=== PATIENT | male | born 1945 | race Caucasian/White ===

== ENCOUNTER → 2021-07-13 14:50 | Outpatient (CLI) | payer MEDICARE, SELFPAY ==
--- NOTE | ~2021-07-13 | XR_ITS ---
EXAMINATION: XR lumbar spine 2-3V DATE: 07/13/2021 15:29 INDICATION: Low back pain TECHNIQUE: Anteroposterior and lateral views of the lumbar spine, and cone-down lateral view of the l umbosacral junction were obtained. COMPARISON: None. FINDINGS: 11 degree dextroscoliosis between L1 and L4 and 90 degree dextrocurvature between L4 and L5. 3 mm ret rolisthesis L3 on L4 and L4 on L5. Vertebral body heights are normal. Severe left-sided disc height l oss at L3-L4 and severe right-sided disc height loss at L4-L5. Moderate to severe disc height loss at L5-S1. Moderate disc height loss at 10-11 and mild disc height loss at L2-L3. Moderate lower lumbar facet osteoarthritis. Mild bilateral sacroiliac osteoarthritis. There are couple 2-3 mm calcification s potentially renal stones project over the left kidney. IMPRESSION: 1. Severe lumbar spondylosis. 2. A couple possible 2-3 mm left renal stones. Reviewed, dictated and finalized at location A. 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
== END ==
PROVIDERS: PCP Family Medicine; Visit Provider Physician Assistant
DX: M47.816 Spondylosis without myelopathy or radiculopathy, lumbar region (principal); M53.3 Sacrococcygeal disorders, not elsewhere classified
CPT/HCPCS: 72100

== ENCOUNTER 2022-02-12 13:56 | Outpatient (CLI) | payer MEDICARE, SELFPAY ==
--- NOTE | ~2022-02-12 | DEXA_ITS ---
Bone Density Report Name: JEANNE CAMPOS Age: 76 Sex: Male Ethnicity: White Date of : 1945 Indication: screening for osteoporosis; cancer; Referring Provider: MAX STEVENS Study: Bone densitometry was performed. Exam Date: February 12, 2022 Accession number: [id number] Bone Density: Region BMD T-score Z-score Classification AP Spine(L1, L2, L3) 1.098 0.3 1.2 Normal Femoral Neck (Left) 0.670 -1.9 -0.6 Osteopenia Total Hip (Left) 0.899 -0.9 -0.1 Normal Femoral Neck (Right) 0.655 -2.0 -0.7 Osteopenia Total Hip (Right) 0.825 -1.4 -0.6 Osteopenia Total Hip Mean 0.862 -1.2 -0.4 Osteopenia World Health Organization criteria for BMD impression classify patients as: Normal (T-score at or above -1.0), Osteopenia (T-score between -1.0 and -2.5), or Osteoporosis (T-score at or below -2.5). 10-year Fracture Risk(1): Major Osteoporotic Fracture 8.1% Hip Fracture 2.7% Reported Risk Factors: [place] (), Neck BMD=0.655, BMI=29.6 (1) FRAX(R) Version 3.08. Fracture probability calculated for an untreated patient. Fracture probability may be lower if the patient has received treatment. Clinical Information Provided by Patient: Has used the following medications: Vitamin D, Calcium Has the following medical conditions: Cancer Patient maximum height was 72 Drinks caffeinated beverages Impression: The patient has low bone mass, based on the Right Femoral Neck T-score. The patient has an estimated ten-year risk of hip fracture of 2.7% and an estimated ten-year risk of major fracture of 8.1%, based on the WHO FRAX algorithm. Discussion: BONE DENSITY IS LOW AT ONE OR MORE SKELETAL SITES. This patient's lowest T-score is low at one or more skeletal sites. It meets the World Health Organization's (WHO) criteria for ?low bone mass? (T-score between -1.0 and -2.5). The patient's 10-year risk of fracture as calculated by FRAX is less than the threshold where pharmacological therapy is recommended by the National Osteoporosis Foundation (NOF). However, all treatment decisions require clinical judgment and consideration of individual patient factors, including patient preferences, comorbidities, previous drug use, risk factors not captured in the FRAX model (e.g., frailty, falls, vitamin D deficiency, increased bone turnover, interval significant decline in bone density) and possible under or overestimation of fracture risk by FRAX. The patient should follow a healthful lifestyle (good nutrition with adequate calcium and vitamin D, and appropriate weight-bearing exercise). Follow-Up: Consider repeating this study in 2 to 3 years to reassess this patient's status, or sooner if there is some new clinical indication. Reported by: [facility] on 02/12/2022 2:21:00 PM.
== END 2022-02-12 13:57 | disposition home or self-care (01) ==
LOC: ANHIMG 13:57
PROVIDERS: PCP Family Medicine; Visit Provider Family Medicine
DX: M85.859 Other specified disorders of bone density and structure, unspecified thigh (principal); M85.851 Other specified disorders of bone density and structure, right thigh; M85.852 Other specified disorders of bone density and structure, left thigh
CPT/HCPCS: 77080

== ENCOUNTER 2023-12-09 10:16 | Outpatient (CLI) | payer MEDICARE, SELFPAY ==
--- NOTE | ~2023-12-09 | XR_ITS ---
EXAMINATION: XR hip LT 2V w AP pelvis DATE: 12/09/2023 10:30 INDICATION: Left hip pain. TECHNIQUE: An anteroposterior view of the pelvis and 2 views of left hip were obtained. COMPARISON: None. FINDINGS: There is lumbar dextrocurvature and severe spondylosis. No fracture. There is moderate oste oarthritis of the hips. IMPRESSION: 1. Moderate osteoarthritis of the hips. Reviewed, dictated and finalized at location A.
== END 2023-12-09 10:17 ==
PROVIDERS: PCP Family Medicine; Visit Provider Nurse Practitioner Family
DX: M16.0 Bilateral primary osteoarthritis of hip (principal)
CPT/HCPCS: 73502

== ENCOUNTER 2024-12-25 09:21 | Outpatient (CLI) | payer MEDICARE, SELFPAY ==
--- OUTSIDE RECORDS SUMMARY | 2024-10-26 06:30 | XMS_ITS | Continuity of Care Document ---
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 Role Phone Daniel Anna OD Unavailable Unavailable Allergies, Adverse Reactions, Alerts Substance Reaction Status Criticality No Known Allergies Active No Inform ation Medications Medication Instructions Dosage Effective Dates (start - stop) Status Comments PreserVision AREDS-2 250 mg-90 mg-40 mg-1 mg capsule take 1 capsule by oral route 2 times every day 1 capsule - Active atorvastatin 80 mg tablet - Active CoQ-10 100 mg capsule take 1 capsule by oral route every day 1 capsule - Active Vitamin D3 25 mcg (1,000 unit) tablet tab daily orally in summer/ 2 in winter - Active finasteride 5 mg tablet - Active pilocarpine 5 mg tablet - Active alfuzosin ER 10 mg tablet,extended release 24 hr - Active losartan 50 mg tablet - Acti ve omeprazole 20 mg capsule,delayed release - Active triamcinolone acetonide 0.1 % topical cream - Active aspirin 81 mg chewable tablet chew 1 tablet by oral route every day 81 MG - Active ketoconazole 2 % topical cream apply by topical route every day to the affected area(s) 0.00 - Active clindamycin 1 % lotion apply by topical route 2 times every day a thin layer to the affected area(s) 0.00 - Active fish oil ORAL CAPSULE 1 gelcsap orally 2 x daily - Active Calcium 500 + D 500 mg (1,250 mg)-200 unit tablet take 2 tablet by oral route every day 2 tablet - Active multivitamin tablet take 1 by oral route every day 1 - Active Procedures Procedure Date FUNDUS PHOTOGRAPHY EYE EXAM & TREATMENT FUNDUS PHOTOGRAPHY REFRACTION EYE EXAM & TREATMENT FUNDUS PHOTOGRAPHY REFRACTION EYE EXAM & TREATMENT FUNDUS PHOTOGRAPHY EYE EXAM & TREATMENT FUNDUS PHOTOGRAPHY EYE EXAM & TREATMENT REFRACTION FUNDUS PHOTOGRAPHY EYE EXAM & TREATMENT REFRACTION EYE EXAM ESTABLISHED PAT Results Test Name Date and Time Measure Units Reference Range Abnormal Flag Status Commen ts Panel Description: [id number] Final Image Zeiss Result 1 Panel Description: [id number] Final Image Zeiss Result 2 Advance Directives Directive Yes / No Effective Date File Name No Information Encounters Encounter Description Practice Location Reason(s) For Visit Diagnoses Date Provider Providers Copied on Encounter [facility], [address] [place] [address], [id number], tel:[phone] [facility] Pseudo Exam (chief complaint) Drusen (chief complaint) decreased vision (chief complaint) Alternating esotropiaVitreo us degeneration, bilateralPresen ce of intraocular lensDrusen (degenerative) of macula, bilateral [address] [place] [address]. [address] [place] [address], [id number] , . tel: [phone] Referring Provider: Clare Mart MD, [facility] [address] [place] [address], [place], [address]. tel:[phone] [facility], [address] [place] [address], [id number], tel:[phone] [employer] [facility] blurry vision (chief complaint) Drusen (chief complaint) Vitreous degeneration, bilateralDrusen (degenerative) of macula, bilateralAltern ating esotropiaPresen ce of intraocular lensPresbyopia 4 Shoshana Sanchez. [address] [place] [address], [id number] , . [phone] Referring Provider: Clare Mart MD, [address] [place], [address]. tel:[phone] [facility], [address] [place] [address], [id number], tel:[phone] [facility] blurry vision (chief complaint) Vitreous degeneration, bilateralDrusen (degenerative) of macula, bilateralAltern ating esotropiaPresen ce of intraocular lensPresbyopia 3 Shoshana Sanchez. [address] [place] [address], [id number] , [place]. tel:[phone] Referring Provider: Clare Mart MD, [address] [place], [address]. tel:[phone] [facility], [address] [place] [address], [id number], tel:[phone] blurry vision (chief complaint) Presence of intraocular lensAlternating esotropiaDrusen (degenerative) of macula, bilateralVitreo us degeneration, bilateral 2 Shoshana Sanchez. [address] [place] [address], [id number] , [place]. tel:[phone] Referring Provider: Daniel Anna, [address] [place] [address], [id number]. tel:[phone] [facility], [address] [place] [address], [id number], tel:[phone] [facility] H/O Drusen (chief complaint) blurry vision (chief complaint) Drusen (degenerative) of macula, bilateralPresen ce of intraocular lensVitreous degeneration, bilateralPaving stone degeneration of retina, bilateralAltern ating esotropiaPresby opia 1 Sorce Daniel. [address] [place], [place], [id number] , [place]. tel: [phone] Referring Provider: Clare Mart MD, [address] [place], [address]. tel:[phone] [facility], [address] [place] [address], [id number], [phone] [place] [address] [facility] No Information 0- 1 Sorce Daniel. [address] [place] [address], [id number] , [place]. tel: [phone] Referring Provider: Clare Mart MD, [address] [place], [address]. tel:[phone] [facility], [address] [place] [address], [id number], tel:[phone] [address] [place] [address] [facility] blurry vision (chief complaint) existing condition drusen (chief complaint) redness (chief complaint) Episcleritis periodica fugax, right eyeDrusen (degenerative) of macula, bilateralVitreo us degeneration, bilateralAltern ating esotropiaPresen ce of intraocular lensPresbyopia 0 Sorce Daniel. [address] [place] [address], [id number] , . tel: [phone] [facility], [address] [place] [address], [id number], [phone] [place] [address] [facility] No Information 0 Sorce Daniel. [address] [place], [place], [id number] , [place]. tel: [phone] Referring Provider: Clare Mart MD, [address] [place], [address]. tel:[phone] [facility], [address] [place] [address], [id number], [place] tel:[phone] [facility] Pain and redness (chief complaint) Alternating esotropiaDrusen (degenerative) of macula, bilateralPresen ce of intraocular lensVitreous degeneration, bilateralEpiscl eritis periodica fugax, right eye September- 0 Shoshana Sanchez. [address] [place] [address], [id number] , [place]. tel: [phone] [facility], [address] [place] [address], [id number], [place] tel:[phone] [facility] PresbyopiaAlter nating esotropiaPresen ce of intraocular lensDrusen (degenerative) of macula, bilateralVitreo us degeneration, bilateral Dec- 9 Sorenriqueta Youngerig. [address] [place] [address], [id number] , [place]. tel: [phone] [facility], [address] [place] [address], [id number], [place] tel:[phone] [facility] Drusen (degenerative) of macula, bilateralPresen ce of intraocular lensOther secondary cataract, bilateral Oct- 9 Galrenea Burke. [address] [place] [address], [id number] , [place]. tel: [phone] [facility], [address] [place] [address], [id number], tel:[phone] [facility] PresbyopiaDruse n (degenerative) of macula, bilateralVitreo us degeneration, bilateralPresen ce of intraocular lens Markus- 9 Sorenriqueta Daniel. [address] [place] [address], [id number] , [place]. tel: [phone] [facility], [address] [place] [address], [id number], tel:[phone] [facility] Myopia, right eyeEncounter for other specified surgical aftercare 8 Sorenriqueta Youngerig. [address] [place] [address], [id number] , [place]. tel: [phone] [facility], [address] [place] [address], [id number], [phone] [facility] Encounter for other specified surgical aftercareEncoun ter for other specified surgical aftercare Oct-1 0-201 8 Shoshana Sanchez. [address] [place] [address], [id number] , [place]. tel: [phone] [facility], [address] [place] [address], [id number], [place] [phone] Encounter for other specified surgical aftercareEncoun ter for other specified surgical aftercare Oct-0 3- 8 Shoshana Sanchez. [address] [place] [address], [id number] , [place]. tel: [phone] [facility], [address] [place] [address], [id number], [place] tel:[phone] [facility] Encounter for other specified surgical aftercareAge-re lated nuclear cataract, right eye Sep-1 9 8 Shoshana Sanchez. [address] [place] [address], [id number] , [place]. tel: [phone] [facility], [address] [place] [address], [id number], [phone] Encounter for other specified surgical aftercare Sep-1 2- 8 Shoshana Sanchez. [address] [place] [address], [id number] , [place]. tel: [phone] [facility], [address] [place] [address], [id number], [place] [phone] Age-related nuclear cataract, bilateralDrusen (degenerative) of macula, bilateralVitreo us degeneration, bilateral Aug-0 5 8 Amiebernadette Turk. [address] [place] [address], [id number] , [place]. tel: [phone] [facility], [address] [place] [address], [id number], tel:[phone] [facility] Vitreous degeneration, bilateralAge-re lated nuclear cataract, bilateralDrusen (degenerative) of macula, bilateral 7 Sorenriqueta Youngerig. [address] [place] [address], [id number] , . tel: [phone] [facility], [address] [place] [address], [place], [place], [id number], [phone] [facility] Age-related nuclear cataract, bilateralUnspec ified chorioretinal scars, left eyePresbyopiaDr usen (degenerative) of macula, bilateral 6 Sorenriqueta Sanchez. [address] [place], [place], [id number] , . tel:[phone] Family History Family Member Type Diagnosis Age At Onset Problem (finding) Cataract sister he thinks Problem (finding) Fhx of degene rative disorder of macula Brother Problem Parkinson's disease Payers Payer name Insurance type Covered green party ID Bong jensen(s) [employer] 16 [id number] Social History Type Description Quantity Date Captured Comments Alcohol Use Details No Caffeine Use Details Unknown Tobacco Use Status No Information Smoking Status Former smoker Non-Smoking Tobacco Use Details : No Details Available : No Details Available Sex Male Chief Complaint And Reason For Visit From encounter dated '10/26/2024 11:30'. Pseudo Exam (chief complaint). Description: The 78 year old patient presents for evaluation of Pseudo Exam in the right eye and left eye. Drusen (chief complaint). Description: The patient is present for evaluation of Drusen in the righteye and left eye. The condition is moderate. The symptom is constant. Uses AREDS2 as needed but no complaints decreased vision (chief complaint). Description: The patient is present for evaluation of decreasedvision in the right eye and left eye. It occurs when tired. The symptom is constant. The condition is limiting patient's ability to read. more so when the light is deem. Reason For Referral Reason For Referral No Information Plan Of Treatment Date Type Action Status Goal Tobacco cessation counseling completed Appointment Abdaiziz Campos BOOKED Future Order: Radiology Order Op [facility] GAL ([id number]), Sent on: Sent History Of Present Illness Encounter Date Complaint History Of Prese nt Illness Pseudo Exam The 78 year old patient presents for evaluation of Pseudo Exam in the right eye and left eye. Drusen The patient is p resent for evaluation of Drusen in the right eye and left eye. The condition is moderate. The symptom is constant. Uses AREDS2 as needed but no complaints decreased vision The patient is present for evaluation of decreased vision in the right eye and left eye. It occurs when tired. The symptom is constant. The condition is limiting patient's ability to read. more so when the light is deem. Drusen The patient is p resent for evaluation of Drusen in the right eye and left eye. The symptom is constant. The condition is mild. Taking AREDS2 1 PO 2 x d blurry vision The 77 year old male presents for evaluation of blurry vision in the right eye and left eye. It affects both near and far vision. The symptom is constant. The condition is mild. The condition is described as blurring. In addition, the condition is associated with daily activity and chores. blurry vision The 76 year old male presents for evaluation of blurry vision in the right eye and left eye. It affects both near and far vision. The symptom is constant. VA stable, no changes. States bright daylight and nighttime driving can cause VA to blur a little. Denies pain, FOL or floaters. blurry vision The 75 year old male presents for evaluation of blurry vision in the right eye and left eye. Monitored for many years. Pt takes AREDS2 Vitamin, compliantly. Slightly decreased acuity left eye upon night driving. H/O Drusen The 74 year old male presents for evaluation of H/O Drusen in the right eye and left eye. Va unaffected per pt. Pt taking AREDS2 BID. blurry vision The patient is p resent for evaluation of blurry vision in the right eye and left eye. Blurred many years. Unchanged per pt. Blur is at dist. & close w/o Rx. blurry vision The 73 year old male presents for evaluation of blurry vision in the right eye and left eye. Without glasses. Distance and near. Years. Mild. Glasses help. existing condition drusen The pa kristy is present for evaluation of existing condition drusen in the right eye and left eye. mild, yrs, areds2 compliant, +FOHX of armd redness OD resolved w ey edrops. Pain and redness The 73 year old male presents for evaluation of Pain and redness in the right eye. It started about 2 day(s) ago. The onset was sudden after poking eye with knuckle while wiping away tears from laughing. The condition is described as painful when moving to left. Redness, tenderness, slight light sensitivity. Denies any visual changes Functional Status Date Functional Assessmen t No Information Instructions Date Instruction Additional Infor isiah Impression/Plan Related to Prese nce of intraocular lens Impression/Plan Related to Druse n (degenerative) of macula, bilateral Impression/Plan Related to Vitre ous degeneration, bilateral Impression/Plan Related to Alter nating esotropia Impression/Plan Related to Vitre ous degeneration, bilateral Impression/Plan Related to Druse n (degenerative) of macula, bilateral Impression/Plan Related to Prese nce of intraocular lens Impression/Plan Related to Alter nating esotropia Impression/Plan Related to Presb yopia rtn [address] Anna for Op tos Related to Presbyopia Impression/Plan Related to Vitre ous degeneration, bilateral Impression/Plan Related to Druse n (degenerative) of macula, bilateral Impression/Plan Related to Alter nating esotropia Impression/Plan Related to Prese nce of intraocular lens Impression/Plan Related to Presb yopia Impression/Plan Related to Prese nce of intraocular lens Impression/Plan Related to Vitre ous degeneration, bilateral Impression/Plan Related to Druse n (degenerative) of macula, bilateral Impression/Plan Related to Alter nating esotropia rtn [address] Anna for Op tos Related to Drusen (degenerative) of macula, bilateral Impression/Plan Related to Vitre ous degeneration, bilateral Impression/Plan Related to Druse n (degenerative) of macula, bilateral Impression/Plan Related to Alter nating esotropia Impression/Plan Related to Prese nce of intraocular lens Impression/Plan Related to Presb yopia rtn [address] Anna for Op tos Related to Drusen (degenerative) of macula, bilateral Impression/Plan Related to Episc leritis periodica fugax, right eye Impression/Plan Related to Druse n (degenerative) of macula, bilateral Impression/Plan Related to Vitre ous degeneration, bilateral Impression/Plan Related to Alter nating esotropia Impression/Plan Related to Prese nce of intraocular lens Impression/Plan Related to Presb yopia Impression/Plan Related to Episc leritis periodica fugax, right eye Impression/Plan Related to Alter nating esotropia Impression/Plan Related to Druse n (degenerative) of macula, bilateral Impression/Plan Related to Prese nce of intraocular lens Impression/Plan Related to Vitre ous degeneration, bilateral Assessments Type Assessment Date assessment Alternating esotropia impression 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 J assessment Vitreous degeneration, bilateral impression Vitreous degeneratio n, bilateral: H43.813. Indication: Posterior vitreous detachmentReliability: goodFindings: Posterior vitreous detachment (PVD).Therapeutic implications: observe for signs and symptoms of retinal detachment. assessment Presence of intraocular lens Oct impression Presence of intraocular lens: Z9 6.1. assessment Drusen (degenerative) of macula, bilateral impression Drusen (degenerative ) of macula, bilateral: H35.363. Indication: DrusenReliability: goodFindings: Drusen periph / min centralTherapeutic implications: observe, consider AREDS2 supplements.Continue observation and follow up on a regular basis. Patient Care Teams Name Effective Dates (start - stop) Status Members No Information
--- NOTE | ~2024-12-25 | XR_ITS ---
EXAM/ PROCEDURE: XR hand BI arthritis min 3V - 12/25/2024 9:40 CDT HISTORY: 79 years old Male with M18.9 - Osteoarthritis of first carpometacarpal joint, un... COMPARISON: None available TECHNIQUE: Three view(s) FINDINGS/ IMPRESSION: There are no fractures or dislocations.Joint space narrowing, subchondral sclerosis, subchondral cyst formation and osteophyte formation, compatible with mild osteoarthritis, most pronounced at first carpometacarpal joint. Reviewed, dictated and finalized at location A.
--- OUTSIDE RECORDS SUMMARY | 2024-12-25 09:39 | XMS_ITS | Encounter Summary ---
Author Organization [facility] Address [address] [place] [address] Care Team Providers Care Delivery Table Feeder Name Role Phone Unavailable Primary Care Provider Unavailabl e Encounter Details Date Type Department Care Team (Late st Contact Info) Description 05/22/2020 Lab Requisition [facility] DermPath Lab [address] [place] [address] Martin Locke MD [address] COUNTS INCLUDE [address]S [address] [facility] [address] [place] [address] Social History Tobacco Use Types Packs/Day Years Used Date Smoking Tobacco: Former Cigarettes 0 05/09/1966 - 05/09/1990 Smokeless Tobacco: Never Sex and Gender Information Value Date Recorded Sex Assigned at Not on file Legal Sex Male 1:49 PM CDT Gender Identity Not on file Sexual Orientation Not on file documented as of this encounter Plan of Treatment Not on file documented as of this encounter Procedures Procedure Name Priority Date/Time Associated Diagnosis Comments DERMATOPATHOLOGY Routine 05/21/2020 3:27 AM CASTING MACHINE SERVICE OPERATOR documented in this encounter Results * DERMATOPATHOLOGY (05/21/2020 3:27 AM CASTING MACHINE SERVICE OPERATOR) Case Report Dermatopathology Report Case: [id number] Authorizing Provider: Martin Locke MD Collected: 05/21/2020 03:27 AM Ordering Location: [facility] DermPath Lab Received: 05/22/2020 07:09 AM Pathologist: Arabella Bhatt MD Specimen: Skin, upper mid back 1:32 PM CASTING MACHINE SERVICE OPERATOR DERMATOPATHOLOGY LABORATORY Final Diagnosis Specimen A. SKIN, upper mid back: BASAL CELL CARCINOMA (C44.519) (see microscopic description and comment) 1 1:32 PM [facility] DERMATOPATHOLOGY LABORATORY at 1332 CASTING MACHINE SERVICE OPERATOR Clinical History ISK vs BCCA. Path # [id number]. 1 1:32 PM [facility] DERMATOPATHOLOGY LABORATORY Gross Description Specimen A: Received is one formalin filled container labeled with the patient's name and designated upper mid back. The specimen consists of a shave biopsy measuring [id number]. Jar 0. 1 1:32 PM [facility] DERMATOPATHOLOGY LABORATORY Microscopic Description Specimen A. SKIN, upper mid back: The specimen consists of aggregates of basaloid cells, located within the superficial dermis, with high nuclear to cytoplasmic ratio and peripheral palisading. COMMENT: The small size of the specimen limits subtyping of the lesion. 1 1:32 PM [facility] DERMATOPATHOLOGY LABORATORY Disclaimer An external and internal positive and negative controls are appropriate for the histochemical, immunohistochemical and immunofluorescence stain(s) in this case (if any), except where stated explicitly. The performance characteristics of the stain(s) cited in this report were developed and its performance characteristic determined by the Dermatopathology Laboratory at [facility], directed by Dr. Marilee Billingsley. These tests need not be, and therefore are not, approved by the [place] Food and Drug Administration. The tests are used for clinical purposes. Billing Codes Specimen Charges Stain Charges 39812 1 1 1:32 PM [facility] DERMATOPATHOLOGY LABORATORY Embedded Images 1 1:32 PM [facility] DERMATOPATHOLOGY LABORATORY Pathology/Cytolo gy TISSUE SPECIMEN FROM SKIN / Unknown 05/21/2020 3:27 AM CASTING MACHINE SERVICE OPERATOR 05/22/2020 7:09 AM CASTING MACHINE SERVICE OPERATOR us Martin Locke MD LAB - PATHOLOGY/CYTOLOGY ORDER CARL Final Result DERMATOPATHOLOGY LABORATORY [facility] - Department of Dermatology [address], [address] [phone] documented in this encounter Visit Diagnoses Not on filedocumented in this encounter
--- OUTSIDE RECORDS SUMMARY | 2024-12-25 09:39 | XMS_ITS | Clinical Summary ---
Author Organization [facility] Address [address] [place] [address] Care Team Providers Care Cloak Room Attendant Name Role Phone Unavailable Primary Care Provider Unavailabl e Source Comments [facility],non-owned Affiliates and Associated Physician Practices is amultiple site organization consisting of ambulatory clinics and hospital sitesin [place], [place], [place] and [place]. This disclosure is being madepursuant to the Care Everywhere program and may not contain all information available regarding this patient. Last updated 18.[facility] Allergies No known active allergies Medications * Be aware that medications may not be up to date on this document. Alwaysverify current medications with the patient. Coenzyme Q10 (CO Q 10) 100 MG Take 100 mg by mouth once daily Active [place]-3 Fatty Acids (FISH OIL) 1000 MG capsule Take 2 capsules at bedtime. Active hydrocortisone butyrate (LOCOID) 0.1 % cream Apply to affected area 3 times daily Active Multiple Vitamins-Minerals (MENS MULTIVITAMIN PLUS PO) Take 1 Tab by mouth once daily Active naftifine (NAFTIN) 1 % cream Apply to affected area once daily Active omeprazole (PRILOSEC) 20 MG capsule Take 20 mg by mouth daily before breakfast Active pilocarpine hcl, oral, (SALAGEN) 5 MG tablet Take 5 mg by mouth 3 times daily Active simvastatin (ZOCOR) 10 MG tablet Take 10 mg by mouth at bedtime Active sildenafil (VIAGRA) 100 MG tablet Take 100 mg by mouth once as needed Active Cholecalciferol (VITAMIN D PO) Activ e CALCIUM PO Active naproxen sodium (ALEVE) 220 MG tablet Take 220 mg by mouth as needed Active finasteride (PROSCAR) 5 MG tablet Take 5 mg by mouth once daily Active Multiple Vitamins-Minerals (PRESERVISION AREDS 2 PO) Take 2 Tabs by mouth once daily Active alfuzosin CR 24hr (UROXATRAL) 10 MG tablet Take 10 mg by mouth once daily 8 Active losartan (COZAAR) 50 MG tablet Take 1 tablet by mouth once daily 14 tablet 1 0 Active Active Problems Problem Noted Date Diagnosed Date Dysmetabolic syndrome X 03/05/2016 Esophageal reflux 03/05/2016 Gallbladder polyp 03/05/2016 Hyperlipidemia 03/05/2016 Overview (03/05/2016): Cristela Classification Type Iib Prehypertension 03/05/2016 Vitamin D deficiency 03/05/2016 Resolved Problems Problem Noted Date Diagnosed Date Resolved Date Chest pain 03/05/2016 09/27/2018 Overview (03/30/2016): 03/24 Stress Echo - 9:31 min, negtive for ischemia - normal Lv function Social History Tobacco Use Types Packs/Day Years Used Date Smoking Tobacco: Former Cigarettes 0 05/09/1966 - 05/09/1990 Smokeless Tobacco: Never Sex and Gender Information Value Date Recorded Sex Assigned at Not on file Legal Sex Male 1:49 PM CDT Gender Identity Not on file Sexual Orientation Not on file Last Filed Vital Signs Vital Sign Reading Time Taken Comments Blood Pressure 148/85 04/09/2020 1:31 PM AMMUNITION AND EXPLOSIVES HANDLER Pulse 70 04/09/2020 1:31 PM AMMUNITION AND EXPLOSIVES HANDLER Temperature - - Respiratory Rate - - Oxygen Saturation 97% 04/09/2020 1:31 PM AMMUNITION AND EXPLOSIVES HANDLER Inhaled Oxygen Concentration - - Weight 97.1 kg (214 lb) 04/09/2020 1:31 PM AMMUNITION AND EXPLOSIVES HANDLER Height 182.9 cm (6') 04/09/2020 1:31 PM AMMUNITION AND EXPLOSIVES HANDLER Body Mass Index 29.02 04/09/2020 1:31 PM AMMUNITION AND EXPLOSIVES HANDLER Plan of Treatment Health Maintenance Due Date Last Done Comments HEPATITIS C SCREENING 11/05/1965 DTAP/TDAP/TD VACCINES (1 - Tdap) 11/09/1966 PNEUMOCOCCAL VACCINE 50+ (1 of 1 - PCV) 11/09/1997 ZOSTER VACCINE (1 of 2) 11/09/1997 SCREENING FOR DIABETES 02/04/2020 02/03/2017 Respiratory Syncytial Virus (RSV) Vaccine Pt: or over 60 yrs (1 - 1-dose 75+ series) 11/09/2022 COVID-19 VACCINE (2023-2 5 season) 2024 DEPRESSION SCREENING 05/09/2024 INFLUENZA VACCINE (#1) 2025 02/24/2016 HEPATITIS B VACCINE Aged Out No longe r eligible based on patient's age to complete this topic HIB VACCINE Aged Out No longer eligi ble based on patient's age to complete this topic HPV VACCINE Aged Out No longer eligi ble based on patient's age to complete this topic MENINGOCOCCAL (Group B) VACC INE SHARED DECISION-MAKING Aged Out No longer eligibl e based on patient's age to complete this topic MENINGOCOCCAL GROUPS A/C/Y/W VACCINE Aged Out No longer eligible b ased on patient's age to complete this topic Procedures Procedure Name Priority Date/Time Associated Diagnosis Comments BASIC METABOLIC PANEL (CALCIUM TOTAL) Routine 02/03/2017 3:52 PM CDT Mixed hyperlipidemia Prehypertension Dysmetabolic syndrome X Gastroesophageal reflux disease without esophagitis from Last 3 Months or Most Recently Relevant to Health Maintenance Results * BASIC METABOLIC PANEL (CALCIUM TOTAL) (02/03/2017 3:52 PM CDT) Glucose 91 65 - 99 mg/dL [facility] Comment: Fasting reference interval BUN 14 7 - 25 mg/dL [facility] Creatinine 0.83 0.70 - 1.25 mg/dL [facility] Comment: For patients >49 years of age, the reference limit for Creatinine is approximately 13% higher for people identified as -Greenlandic. eGFR by MDRD 90 > OR = 60 mL/min/1 .73m2 [facility] eGFR by MDRD 104 > OR = 60 mL/min/1 .73m2 [facility] BUN/Creatinine Ratio NOT APPLICABLE 6 - 22 (calc) [facility] Sodium 142 135 - 146 mmol/L [facility] Potassium 3.9 3.5 - 5.3 mmol/L [facility] Chloride 105 98 - 110 mmol/L [facility] CO2 30 20 - 31 mmol/L [facility] Calcium 9.4 8.6 - 10.3 mg/dL [facility] Comment: Test Performed at: [employer] [facility] [address] [place] [address] NICK ROGER DO,MPH Blood BLOOD SPECIMEN / Unknown 02/03/2017 3:52 PM CDT 02/03/2017 3:52 PM CDT us Walker Nur MD LAB - CHEMISTRY ORDERABLES E dited Result - Final [facility] [id number] [place] [address] from Last 3 Months or Most Recently Relevant to Health Maintenance Insurance AETNA AETNA
--- OUTSIDE RECORDS SUMMARY | 2024-12-25 09:39 | XMS_ITS | Clinical Summary ---
Author Organization [facility] Address [address] [place] [address] Care Team Providers Care Crayon Molding Machine Operator Name Role Phone Walker Nur MD Unavailable [phone] Tate Mart MD Primary Care Provider [phone] Allergies Active Allergy Reactions Criticality Noted Date Comments Ciprofloxacin Joint Pain 07/03/2022 Medications omeprazole 20 MG capsule Take 1 capsule (20 mg total) by mouth daily. Active pilocarpine 5 MG tablet Take 1 tablet (5 mg total) by mouth daily. Active finasteride 5 MG tablet Take 1 tablet (5 mg total) by mouth nightly. Active losartan 50 MG tablet Take 1 tablet (50 mg total) by mouth nightly. Active alfuzosin 10 MG 24 hr tablet Take 1 tablet (10 mg total) by mouth nightly. 12/12/2017 Active Coenzyme Q10 (CO Q 10) 100 MG Cap Take 100 mg by mouth daily. Active calcium carbonate (CALCIUM 600) 600 MG tablet Take 1 tablet (600 mg total) by mouth daily. Active fish oil 1000 MG Cap capsule Take 1 capsule (1,000 mg total) by mouth daily. Active Multiple Vitamins-Minera ls (ICAPS AREDS 2 OR) Take 2 tablets by mouth. Active multivitamin tablet Take 1 tablet by mouth daily. Active Ergocalciferol (VITAMIN D OR) Activ e losartan (COZAAR) 50 MG tablet Take 1 tablet (50 mg total) by mouth daily. 01/18/2023 Active cholestyramine (QUESTRAN) 4 G packetIndicatio ns:Bile reflux gastritis Take 1 packet (4 g total) by mouth 2 (two) times daily with meals. Take once or twice a day. 180 packet 3 06/04/2024 Active Active Problems Problem Noted Date Diagnosed Date Periumbilical pain 05/17/2024 Gastroesophageal reflux dise ase, unspecified whether esophagitis present 05/17/2024 Family history of colon cancer in mother 024 History of colon polyps 01/25/2024 Resolved Problems Problem Noted Date Diagnosed Date Resolved Date Screening for colon cancer 05/17/2024 0 05/28/2024 Screening for colon cancer 01/25/2024 0 01/30/2024 Family History Medical History Relation Comments Heart Disease Father Colon Cancer Mother returned at 86 Heart Disease Sister 2 Relation Status Comments Brother Alive Daughter 1 Alive Daughter 2 Alive Father Mother Sister 1 Alive Sister 2 of pericard itis Sister 3 Alive Social History Tobacco Use Types Packs/Day Years Used Date Smoking Tobacco: Former Cigarettes 2 19 1 2 - 1990 Smokeless Tobacco: Never Tobacco Cessation:Counseling Given: No Alcohol Use Standard Drinks/Week Comments No 0 (1 standard drink = 0.6 oz pur e alcohol) PHQ-2 Answer Date Recorded Patient Health Questionnaire-2 Score 0 01/25/2024 Sex and Gender Information Value Date Recorded Sex Assigned at Male 06/04/2024 6:29 AM SOIL CONSERVATIONIST Legal Sex Male 6:55 PM CDT Gender Identity Male 07/29/2021 8:36 AM CDT Sexual Orientation Straight 07/29/2021 8: 36 AM CDT Last Filed Vital Signs Vital Sign Reading Time Taken Comments Blood Pressure 151/101 06/04/2024 8:45 AM SOIL CONSERVATIONIST Pulse 76 06/04/2024 8:25 AM SOIL CONSERVATIONIST Temperature 36.3 C (97.4 F) 06/04/2024 8:25 AM SOIL CONSERVATIONIST Respiratory Rate 18 06/04/2024 8:25 AM SOIL CONSERVATIONIST Oxygen Saturation 93% 06/04/2024 8:45 AM SOIL CONSERVATIONIST Inhaled Oxygen Concentration - - Weight 95.3 kg (210 lb) 06/04/2024 7:54 AM SOIL CONSERVATIONIST Height 182.9 cm (6') 01/25/2024 10:32 AM CDT Body Mass Index 28.48 01/25/2024 10:32 AM CDT Plan of Treatment Health Maintenance Due Date Last Done Comments Hepatitis C 11/09/1963 DTaP, Tdap and Td Vaccines (1 - Tdap) 11/09/1966 Pneumococcal Vaccine: 50+ Years (1 of 1 - PCV) 11/09/1997 Zoster Vaccines (1 of 2) 11/09/1997 Annual Medicare Wellness Visit 11/09/2012 RSV Immunization or 60+ Years (1 - 1-dose 75+ series) 11/09/2022 COVID-19 Vaccine (3 - season) 2024 06/27/2020, 05/30/2020 PHQ-2 (Physician [place]) 05/09/2024 01/25/2024 Colorectal Cancer Screening Colonoscopy (10 Years) Discontinued 06/04/2024, 06/04/2024, 11/12/2020, Additional history exists Meningococcal B Vaccine Aged Out No l onger eligible based on patient's age to complete this topic Meningococcal Vaccine Aged Out No laura kylah eligible based on patient's age to complete this topic RSV Immunizations Under 20 Months Aged Out No longer eligible based on patient's age to complete this topic Medical Devices Implanted Type Area Robotics Application Engineer Device Identifier Shelf Expiration Date Model / Serial / Lot Mesh Progrip Self Fixating 16cm X 12cm - [id number] Implanted:Qty: 1 on 12/26/2017 by Pino Reis MD at [facility] Mesh Right: Groin COVIDIEN 05/08/2020 [id number] / / [id number] Description:RIGHT INGUINAL H ERNIA Mesh Progrip Self Fixating 16cm X 12cm - [id number] Implanted:Qty: 1 on 12/26/2017 by Pino Reis MD at [facility] Mesh Left: Groin COVIDIEN 05/08/2020 [id number] / / [id number] Procedures Procedure Name Priority Date/Time Associated Diagnosis Comments COLONOSCOPY Routine 06/04/2024 8:27 AM SOIL CONSERVATIONIST from Last 3 Months or Most Recently Relevant to Health Maintenance Results * Colonoscopy (11/12/2020 7:47 AM CDT) Marilyn Chino MD - 11/12/2020 7:47 AM CDT Marilyn Gallardo MD 11/12/2020 8:19 AM MARILYN GALLARDO MD, FACG, FACP COLONOSCOPY and EGD 11/12/2020 This is a 75-year-old male with history of GERD, HTN, HLD, Parotid cancer and bilateral IHR who now presents for EGD for GERD and colonoscopy for personal history of colon polyps, family history of colon cancer in his mother. GI review of systems is otherwise negative. No endocarditis risk factors. No Known Allergies Medications: see list. WDWN/NAD. VITALS: Stable. LUNGS: Clear. HEART: RRR. S1/S2 normal. ABDOMEN: NABS/NT. The procedures of colonoscopy and EGD, their indications, alternatives of barium studies and risks including perforation, bleeding, infection, reaction to medication as well as the possible need for blood or surgery were discussed with the patient prior to the procedure. The patient voices understanding, agrees to proceed and provides informed consent. EGD INDICATION: GERD. POST-OP: 5 cm hiatal hernia. Gastric polyps-sampled. SEDATION: Per Anesthesia With the patient in the left lateral decubitus position, the Olympus [id number] endoscope was used to easily intubate the esophagus and advanced to the third duodenum. Careful inspection of the mucosa was made upon insertion and withdrawal of the endoscope with retroflexion in the stomach. Findings: Esophagus: SC Jx @ 40 cm. Esophagus is normal. No esophagitis, stricture, mass or Mauricio's. Stomach: 5 cm hiatal hernia. Fundus, body with too numerous to count small (less than 1.5 cm), sessile polyps sampled with cold biopsy forceps. The antrum is normal. No ulceration, erosion, inflammation, AVM or malignancy. Duodenum: Normal. COLONOSCOPY INDICATION: Personal history of colon polyps and family history of colon cancer. POST-OP: One polyp removed. Mild diverticulosis. PREP: Good. With the patient in the left lateral decubitus position, the [id number] colonoscope was introduced into the rectum and advanced easily to the Terminal Ileum. Careful inspection of the mucosa was made upon insertion and withdrawal of the endoscope. FINDINGS: Terminal ileum: distal 5 cm normal. Cecum and Rectum including retroflexion normal. Ascending colon: 1.0 cm sessile polyp removed with snare polypectomy without bleed. Ascending colon, Transverse colon, Descending colon, Sigmoid colon: mild diverticulosis. No masses, AVMs or colitis seen. No complications, blood loss or implants. ASSESSMENT AND PLAN: A. GERD: - Stable on meds; continue - No esophagitis or Mauricio s - Small hiatal hernia may contribute to reflux B. Gastric polyps: sampled. C. Mild diverticulosis: observe. D. Personal history of colon polyps and family history of colon cancer: - One polyp removed - If adenomatous repeat colonoscopy in three years otherwise repeat colonoscopy in five years Thank you for allowing me to care for your patient. He will follow-up with Dr. Mart as needed. Marilyn Gallardo M.D. Cc: Dr. Marilee Mart Marilyn Gallardo MD GI PROCEDURE ORDERABLES Fin al Result from Last 3 Months or Most Recently Relevant to Health Maintenance Insurance AETNA Care Teams Crayon Molding Machine Operator Relationship Specialty Start Date End Date Tate Mart MD PCP - General FAMILY PRACTICE 11/04/20 Walker Nur MD HEART & VASCULAR CARE 12/20/17
--- OUTSIDE RECORDS SUMMARY | 2024-12-25 09:39 | XMS_ITS | Encounter Summary ---
Author Organization [facility] Address [address] [place] [address] Care Team Providers Care Blankbook Stitching Machine Operator Name Role Phone Unavailable Primary Care Provider Unavailabl e Encounter Details Date Type Department Care Team (Late st Contact Info) Description 05/21/2021 Lab Requisition [facility] DermPath Lab [address] [place] [address] Martin Locke MD [address] [place] [address] Social History Tobacco Use Types [...] Priority Date/Time Associated Diagnosis Comments DERMATOPATHOLOGY Routine 05/21/2021 12:0 0 AM PHARMACY COORDINATOR documented in this encounter Results * DERMATOPATHOLOGY (05/21/2021 12:00 AM PHARMACY COORDINATOR) Case Report Dermatopathology Report Case: [id number] Authorizing Provider: Martin Locke MD Collected: 05/21/2021 12:00 AM Ordering Location: [facility] DermPath Lab Received: 05/21/2021 04:52 PM Pathologist: Ravindra Billingsley MD Specimen: Skin, right back 3:20 PM PHARMACY COORDINATOR DERMATOPATHOLOGY LABORATORY Final Diagnosis Specimen A. SKIN, right back: NEUROFIBROMA (D36.10) 2 3:20 PM [facility] DERMATOPATHOLOGY LABORATORY at 1520 PHARMACY COORDINATOR Clinical History Nevus vs BCCA. Path#[id number] 2 3:20 PM [facility] DERMATOPATHOLOGY LABORATORY Gross Description Specimen A: Received is one formalin filled container labeled with the patient's name and designated right back. The specimen consists of a shave biopsy measuring 8x6x3 mm. Jar 0. 2 3:20 PM [facility] DERMATOPATHOLOGY LABORATORY Microscopic Description Specimen A. SKIN, right back: Sections show a proliferation of spindled and S-shaped cells within the dermis. The stromal collagen is delicate and pale. 2 3:20 PM [facility] DERMATOPATHOLOGY LABORATORY Disclaimer An external and internal positive and negative controls are appropriate for the histochemical, immunohistochemical and immunofluorescence stain(s) in this case (if any), except where stated explicitly. The performance characteristics of the stain(s) cited in this report were developed and its performance characteristic determined by the Dermatopathology Laboratory at [facility], directed by Dr. Marilee Billingsley. These tests need not be, and therefore are not, approved by the [place] Food and Drug Administration. The tests are used for clinical purposes. Billing Codes Specimen Charges Stain Charges 96990 1 2 3:20 PM [facility] DERMATOPATHOLOGY LABORATORY Embedded Images 2 3:20 PM [facility] DERMATOPATHOLOGY LABORATORY Pathology/Cytolog y TISSUE SPECIMEN FROM SKIN / Unknown 05/21/2021 05/21/2021 4:52 PM [facility] us Martin Locke MD LAB - PATHOLOGY/CYTOLOGY ORDER CARL Final Result DERMATOPATHOLOGY LABORATORY [facility] - Department of Dermatology [address] [place] [address], [facility] [phone] documented in this encounter Visit Diagnoses Not on filedocumented in this encounter
--- OUTSIDE RECORDS SUMMARY | 2024-12-25 09:39 | XMS_ITS | Clinical Summary ---
Author Organization [facility] Address [address] [address] [place] [address] Phone Care Team Providers Care Events Specialist Name Role Phone Roe Dial MD Primary Care Provider [phone] Allergies No known active allergies Medications omeprazole (PriLOSEC) 20 mg Capsule, Delayed Release(E.C.) daily. 03/19/2016 Activ e pilocarpine (SALAGEN) 5 mg Tablet daily. 04/15/2016 Active simvastatin (ZOCOR) 10 mg tablet Take 10 mg by mouth daily at bedtime . 03/19/2016 Active multivitamin (DAILY-SHRAVAN) tablet Take 1 Tablet by mouth daily. Active naproxen sodium (ALEVE) 220 mg Tablet Take 220 mg by mouth 3 times daily . Active COQ10, LIPOSOMAL UBIQUINOL, ORAL Take by mouth daily. Active omega-3 fatty acids-fish oil 300-1,000 mg Capsule Take by mouth 2 times daily . Active cholecalciferol , vitamin D3, 1,000 unit Take by mouth 2 times daily . Active calcium carbonate (CALTRATE) 600 mg (1,500 mg) Tablet Take by mouth 2 times daily with meals. Active ANTIOX #8/OM3/DHA/EPA/ LUT/ZEAX (PRESERVISION AREDS 2, OMEGA-3, ORAL) Take by mouth daily. Active phenazopyridine (PYRIDIUM) 200 mg tablet Take 1 Tablet (200 mg) by mouth 3 times daily as needed (dysuria). 30 Tablet 05/31/2016 Active HYDROcodone-ana maria taminophen (NORCO) 5-325 mg tablet Take 1 Tablet by mouth every 6 hours as needed for Pain. Max Daily Amount: 4 Tablet 60 Tablet 05/31/2016 Active losartan (COZAAR) 50 mg tablet Take 50 mg by mouth daily. Active tamsulosin (FLOMAX) 0.4 mg capsule Take 2 capsules HS. 60 Capsule 5 04/07/2017 Active finasteride (PROSCAR) 5 mg tablet TAKE ONE TABLET DAILY 90 Tablet 3 09/05/2017 Active Active Problems No known active problems Immunizations Immunization Administration Dates Next Due Influenza Seasonal Unspecified Formulation IM Pneumococcal conjugate, unspecified formulation 02/24/2016 Family History Medical History Relation Name Comments Dementia Brother Osteoporosis Brother Heart Disease Father Colon Cancer Mother Bipolar Disorder Sister Relation Name Status Comments Brother Alive Father Mother Sister Social History Tobacco Use Types Packs/Day Years Used Date Smoking Tobacco: Former Cigarettes Q uit: 05/20/1990 Alcohol Use Standard Drinks/Week Comments No 0 (1 standard drink = 0.6 oz pur e alcohol) Sex and Gender Information Value Date Recorded Sex Assigned at Not on file 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 Gender Identity Not on file Sexual Orientation Not on file Last Filed Vital Signs Vital Sign Reading Time Taken Comments Blood Pressure 124/80 02/23/2017 9:01 AM CDT Pulse 80 02/23/2017 9:01 AM CDT Temperature 36.6 C (97.8 F) 05/31/2016 10:00 AM PACKAGING DESIGN 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 Respiratory Rate 16 02/23/2017 9:01 AM CDT Oxygen Saturation 95% 05/31/2016 10:45 AM PACKAGING DESIGN ENGINEER Inhaled Oxygen Concentration - - Weight 95.3 kg (210 lb) 02/23/2017 9:01 AM CDT Height 182.9 cm (6') 02/23/2017 9:01 AM CDT Body Mass Index 28.48 02/23/2017 9:01 AM CDT Plan of Treatment Health Maintenance Due Date Last Done Comments DTAP/TDAP/TD VACCINES (1 - Tdap) 11/09/1966 PNEUMOCOCCAL VACCINE 50+ YEARS (1 of 1 - PCV) 11/09/18 98 02/24/2016 ZOSTER VACCINE (1 of 2) 11/09/1997 RSV VACCINE (60+ or ) (1 - 1-dose 75+ series) 11/09/2022 INFLUENZA VACCINE (#1) 2024 02/24/2016 Advance Directives For more information, please contact: [phone] * Full Code (Latest Code Status on File) Date Activated Date Inactivated Comments 05/31/2016 8:49 AM 05/31/2016 1:32 PM * Full Code Date Activated Date Inactivated Comments 05/31/2016 7:36 AM 05/31/2016 8:49 AM Care Teams Events Specialist Relationship Specialty Start Date End Date Roe Dial MD [address] [place] [address] PCP - General Family Practice 05/20/16
--- OUTSIDE RECORDS SUMMARY | 2024-12-25 09:39 | XMS_ITS | Clinical Summary ---
Author Organization [facility] [address] [facility] [place], [place] tt Address [address] [place] [address] Care Team Providers Care Conservation Officer Name Role Phone Tate Mart MD Primary Care Provider [phone] Allergies No known active allergies Medications calcium-vits S7-H-G3-mineral s 166.75 mg- 166.75 unit capsule Rx: Calcium Active vxvnwegn-iik-KX -lycopen-lutein (CENTRUM SILVER) 0.4-300-250 mg-mcg-mcg tablet Rx: Centrum Silver Active coenzyme Q10 (CO Q-10) 10 mg capsule Rx: Co Q 10 Active CALCIUM ORAL Take by mouth Act yaz COQ10, LIPOSOMAL UBIQUINOL, ORAL Take by mouth daily Active docosahexanoic acid/epa (FISH OIL ORAL) Rx: Fish Oil Active cholecalciferol , vitamin D3, (CHOLECALCIFERO L, VIT D3,,BULK,) 100,000 unit/gram powder Take by mouth Active multivitamin with minerals tablet Take 1 tablet by mouth daily Active omeprazole (PriLOSEC) 10 mg capsule Rx: Omeprazole Acti ve PILOCARPINE HCL ORAL Rx: Pilocarpine HCl Active SIMVASTATIN ORAL Rx: Simvastatin Acti ve alfuzosin ER (UROXATRAL) 10 mg 24 hr tablet 9 Active finasteride (PROSCAR) 5 mg tablet Take 5 mg by mouth daily 8 Active losartan (COZAAR) 50 mg tablet Take 50 mg by mouth daily 8 Active sildenafil (VIAGRA) 100 mg tablet Take 100 mg by mouth daily as needed Active triamcinolone (KENALOG) 0.1 % paste 9 Active vit C/vit E ac/lut/copper/z inc (PRESERVISION LUTEIN ORAL) Take 2 tablets by mouth daily Active ketoconazole (NIZORAL) 2 % cream 1 Active clindamycin (CLEOCIN T) 1 % lotion Apply topically every 12 hours Active aspirin 81 mg enteric coated tablet Take 81 mg by mouth daily Active ciprofloxacin-d exAMETHasone (CIPRODEX) otic suspension Administer 4 drops into each ear 2 (two) times a day 7.5 mL 3 5 Active Active Problems Problem Noted Date Diagnosed Date Cervicalgia 02/01/2022 Benign paroxysmal positional vertigo 07/15/2021 Acute non-recurrent sinusitis 04/01/2021 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 Radiation therapy complication 07/23/2020 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 Impacted cerumen of right ear 07/23/2020 Encounters Date Type Department Care Team Description 11/19/2024 11:20 AM CDT Office Visit [facility] [address] [place] [address], [address] [place] [address] Rachell Ozuna MD Impacted cerumen of right ear (Primary Dx); Osteoradionecrosis of temporal bone (HCC) from Last 3 Months Surgical History Surgery Date Site/Laterality Comments OTHER SURGICAL HISTORY Right parotid gland removed 10/29/2008 OTHER SURGICAL HISTORY Hemmorrhoidectomy 1994 OTHER SURGICAL HISTORY Nasal poylps removed 1985 HERNIA REPAIR EYE SURGERY EAR SURGERY Medical History Medical History Date Comments Cancer (HCC) 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 NO [place] Cancer (HCC) Hx of radiation therapy Hypertension Family History Relation Name Status Comments Brother Daughter 2 Alive Father Heart disease Mother Cancer Sister 2 Alive Social History Tobacco Use Types Packs/Day Years Used Date Smoking Tobacco: Former Cigarettes Q uit: 1990 Smokeless Tobacco: Never Alcohol Use Standard Drinks/Week Comments Never 0 (1 standard drink = 0.6 oz pur e alcohol) AUDIT-C Answer Date Recorded Frequency of Alcohol Consumption Never 09/12/2018 Average Number of Drinks Not on file 019 Frequency of Binge Drinking Not on file 11/2018 Sex and Gender Information Value Date Recorded Sex Assigned at Not on file 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 Gender Identity Not on file Sexual Orientation Not on file Obstetrics History Last Filed Vital Signs Vital Sign Reading Time Taken Comments Blood Pressure 144/74 09/10/2024 10:12 AM CDT Pulse 78 09/10/2024 10:12 AM CDT Temperature 36.2 C (97.1 F) 04/24/2020 11:13 AM 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 Respiratory Rate 16 02/25/2020 8:02 AM CDT Oxygen Saturation 93% 09/10/2024 10:12 AM CDT Inhaled Oxygen Concentration - - Weight 93.4 kg (206 lb) 04/24/2020 11:13 AM 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 Height 182.9 cm (6') 04/24/2020 11:13 AM 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 Body Mass Index 27.94 04/24/2020 11:13 AM 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 Plan of Treatment Health Maintenance Due Date Last Done Comments Depression Screening 1945 Fall Risk Assessment 1945 Hepatitis C Screening 1945 Hepatitis B Screening 11/09/1965 Zoster Vaccine (1 of 2) 11/09/1997 Well Visit 65+ 11/09/2012 Pneumococcal vaccine 65+ (2 of 2 - PCV20 or PCV21) 02/23/2017 02/24/2016 Influenza Vaccine (#1) 2025 9, 02/11/2018, 02/24/2016, Additional history exists DTaP/Tdap/Td Vaccine (3 - Td or Tdap) 06/16/2028 06/16/2018, 12/15/2017 Abdominal Aortic Aneurysm (A AA) Screen Completed 03/01/2024, 06/16/2019, 04/10/2016 Procedures Procedure Name Priority Date/Time Associated Diagnosis Comments US ABDOMINAL AORTA 06/16/2019 8: 25 AM 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 from Last 3 Months or Most Recently Relevant to Health Maintenance Results * US Abdominal Aorta (06/16/2019 8:25 AM 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 TECHNIQUE: Grayscale images acquired of the aorta and stored on PACS. Selected color Doppler and spectral images recorded. COMPARISON: None. FINDINGS: AORTIC CALIBER MAXIMAL PROXIMAL: 2.3 x 2.3 cm. MID: 2.2 x 2.1 cm. DISTAL: 1.9 x 1.8 cm. ILIAC DIAMETER RIGHT: 1.3 x 1.3 cm. LEFT: 1.5 x 1.4 cm. OTHER: No other significant finding. IMPRESSION: No abdominal aortic aneurysm. THIS IS AN ELECTRONICALLY VERIFIED FINAL REPORT 06/16/2019 12:34 PM - Electronically signed by Alex Rucker M.D. CH: YOU Report ID: [id number] Reading Location: [id number] REPORT ELECTRONICALLY SIGNED IN OTHER VENDOR SYSTEM Resulting Agency Comment O Procedure Note Alex Rucker Jr., - 06/16/2019 Patient Name: BETHABDIAZIZ Harrell Dr: Emely Calixto PA-C, D.O.B: 1945 Exam Date: 06/16/19824 Age: 73 Sex: Male MR#: [id number] Loc: RADIOLOGY REPORT Order #[id number] Ultrasound US Abdominal Aorta Signed EXAM DESCRIPTION: US Abdominal Aorta; US Duplex Scan Complete REASON FOR STUDY: Abdominal aortic aneurysm screening,hypercholesterolemia. TECHNIQUE: Grayscale images acquired of the aorta and stored on PACS. Selected color Doppler and spectral images recorded. COMPARISON: None. FINDINGS: AORTIC CALIBER MAXIMAL PROXIMAL: 2.3 x 2.3 cm. MID: 2.2 x 2.1 cm. DISTAL: 1.9 x 1.8 cm. ILIAC DIAMETER RIGHT: 1.3 x 1.3 cm. LEFT: 1.5 x 1.4 cm. OTHER: No other significant finding. IMPRESSION: No abdominal aortic aneurysm. THIS IS AN ELECTRONICALLY VERIFIED FINAL REPORT 06/16/2019 12:34 PM - Electronically signed by Alex Rucker M.D. CH: YOU Report ID: [id number] Reading Location: [id number] REPORT ELECTRONICALLY SIGNED IN OTHER VENDOR SYSTEM Emely RIOS [facility] PROCEDURES Final Result from Last 3 Months or Most Recently Relevant to Health Maintenance Insurance [facility] HMO/POS [employer] MEDICARE Care Teams Conservation Officer Relationship Specialty Start Date End Date Tate Mart MD PCP - General Family Medicine 07/23/20
== END 2024-12-25 09:22 | disposition home or self-care (01) ==
PROVIDERS: PCP Family Medicine; Visit Provider Plastic Surgery
DX: M18.0 Bilateral primary osteoarthritis of first carpometacarpal joints (principal)
CPT/HCPCS: 73130